=== PATIENT | female | born 1965 | race Caucasian/White ===

== ENCOUNTER 2022-12-13 10:34 | Emergency (ER) | payer OTHER, MEDICAID ==
[~2022-12-13] VITALS: Ht 160 cm; Wt 61.2 kg
[2022-12-13 10:38] VITALS: BP_SYST 135
--- NOTE | 2022-12-13 10:44 | NUR ---
NOTICED BLOOD IN URINE PAST SAT
--- NOTE | 2022-12-13 10:57 | NUR ---
Patient to ER bed 4 to gown for evaluation. Side rails up.
[2022-12-13 11:04] LABS: BILIRUBIN,URINE NEGATIVE (NEGATIVE); BLOOD, URINE 3+ (NEGATIVE); CLARITY/URINE SL CLOUDY (CLEAR); COLOR,URINE YELLOW (YELLOW); GLUCOSE,URINE NEGATIVE (NEGATIVE); KETONES,URINE NEGATIVE (NEGATIVE); LEUKOCYTE ESTERASE ,URINE 3+ (NEGATIVE); NITRITE, URINE NEGATIVE (NEGATIVE); PROTEIN URINE TRACE (NEGATIVE); UROBILINOGEN,URINE 0.2 (0.2-1.0)
[2022-12-13 11:21] LABS: BACTERIA,URINE FEW /HPF (None Seen); WBC,URINE 50-80 /HPF (0-3)
[2022-12-13] MEDS ORDERED: cefTRIAXone 1 GM VIAL IM ONE (11:30)
--- NOTE | 2022-12-13 11:32 | NUR ---
Found pt laying in bed without distress. Pt sts that she has had bladder discomfort for 3 days. Pt sts she has a slight burning sensation when urinating but is able to empty her bladder. Pt has no other complaints and shows no signs or symptoms of any complications. awaiting lab results
[2022-12-13] MEDS ORDERED: PHEN-726 PO (11:33)
[2022-12-13] MEDS ORDERED: NITR-85 PO (11:33)
[2022-12-13 12:14] VITALS: BP_SYST 137
--- NOTE | 2022-12-13 12:16 | NUR ---
Patient given written and verbal discharge instructions and verbalizes understanding. ER MD discussed with patient the results and treatment provided. Patient in stable condition. ID arm band removed. IV catheter removed intact and dressing applied, no active bleeding. Patient educated on pain management and to follow up with PMD. Pain Scale . Opportunity for questions provided and answered. Medication side effect fact sheet provided.
== END 2022-12-13 12:14 | disposition home or self-care (01) ==
LOC: SED 10:34
DX: N39.0 Urinary tract infection, site not specified (principal); R30.0 Dysuria; R31.9 Hematuria, unspecified; Z88.0 Allergy status to penicillin; Z88.6 Allergy status to analgesic agent; Z79.899 Other long term (current) drug therapy
CPT/HCPCS: 99283; 81000; 87086; 96372; J0696

== ENCOUNTER 2023-02-09 11:50 | Emergency (ER) | payer OTHER, MEDICAID ==
[~2023-02-09] VITALS: Ht 160 cm; Wt 62.6 kg
[~2023-02-09 11:50] MED LIST: NITR-85 PO; PHEN-726 PO
[2023-02-09 11:56] VITALS: BP_SYST 123
--- NOTE | 2023-02-09 12:10 | NUR ---
ER in Triage examining patient.
[2023-02-09] MEDS ORDERED: NITR-85 PO (12:13)
[2023-02-09] MEDS ORDERED: PHEN-726 PO (12:13)
--- NOTE | 2023-02-09 12:15 | NUR ---
Patient given written and verbal discharge instructions and verbalizes understanding. ER MD discussed with patient the results and treatment provided. Patient in stable condition. ID arm band removed. Rx of given. Patient educated on pain management and to follow up with PMD. Pain Scale 5/10. Opportunity for questions provided and answered. Medication side effect fact sheet provided.
== END 2023-02-09 12:15 | disposition home or self-care (01) ==
LOC: SED 11:50
DX: N39.0 Urinary tract infection, site not specified (principal); R30.0 Dysuria; R35.0 Frequency of micturition; R31.9 Hematuria, unspecified; Z88.0 Allergy status to penicillin; Z88.6 Allergy status to analgesic agent; Z79.899 Other long term (current) drug therapy
CPT/HCPCS: 99283

== ENCOUNTER 2023-03-03 08:36 | Emergency (ER) | payer OTHER, MEDICAID ==
[~2023-03-03] VITALS: Ht 160 cm; Wt 63.5 kg
--- NOTE | 2023-03-03 08:40 | NUR ---
Placed in room 04 . Placed on quality assurance monitor body, blood pressure machine and pulse oximeter. To gown for exam. Side rails up. Report given to FRIDA ROJAS.
[2023-03-03 08:47] VITALS: BP_SYST 148
--- NOTE | 2023-03-03 08:55 | NUR ---
ANUP Duval at bedside examining patient.
--- NOTE | 2023-03-03 09:00 | NUR ---
PT CAME IN FROM HOME C/O BURNING WITH URINATION X 4 DAYS, WAS UNABLE TO MAKE AN APPT WITH PCP IN A TIMELY MATTER. PT IS AMBULATORY, AAOX4, VSS
[2023-03-03] MEDS ORDERED: ONDANSETRON 4 MG ODT TAB PO ONE (09:15)
[2023-03-03] MEDS ORDERED: NITROFURANTOIN MONOHYD/M-CRYST 100 MG CAPSULE (MacroBID) PO ONE (09:15)
--- NOTE | 2023-03-03 09:15 | NUR ---
Urine specimen collected and delivered to lab.
[2023-03-03] MEDS ORDERED: ONDA-8 TL (09:30)
[2023-03-03] MEDS ORDERED: PHEN-890 PO (09:30)
[2023-03-03] MEDS ORDERED: NITR-85 PO (09:30)
[2023-03-03 09:36] LABS: BILIRUBIN,URINE NEGATIVE (NEGATIVE); BLOOD, URINE 2+ (NEGATIVE); COLOR,URINE YELLOW (YELLOW); GLUCOSE,URINE NEGATIVE (NEGATIVE); KETONES,URINE NEGATIVE (NEGATIVE); LEUKOCYTE ESTERASE ,URINE 3+ (NEGATIVE); NITRITE, URINE NEGATIVE (NEGATIVE); PH,URINE 7.5 (5.0-8.0); PROTEIN URINE NEGATIVE (NEGATIVE); UROBILINOGEN,URINE 0.2 (0.2-1.0)
[2023-03-03 09:41] LABS: CLARITY/URINE HAZY (CLEAR)
[2023-03-03 09:45] VITALS: BP_SYST 148
[2023-03-03 09:45] LABS: BACTERIA,URINE MODERATE /HPF (None Seen)
--- NOTE | 2023-03-03 09:45 | NUR ---
Patient given written and verbal discharge instructions and verbalizes understanding. ER MD discussed with patient the results and treatment provided. Patient in stable condition. ID arm band removed. Rx of PYRIDIUM, ZOFRAN AND MACROBID given. Patient educated on pain management and to follow up with PMD. Opportunity for questions provided and answered. Medication side effect fact sheet provided.
--- NOTE | 2023-03-05 10:53 | NUR ---
Blood culture received indicating Escherichia Coli, results given to Dr Gonsalves, per Dr Gonsalves pt was treated with Macrobid during ER visit, pt susceptible to medication.
== END 2023-03-03 09:45 | disposition home or self-care (01) ==
LOC: SED 08:36
DX: N39.0 Urinary tract infection, site not specified (principal); R39.15 Urgency of urination; I10 Essential (primary) hypertension; Z88.0 Allergy status to penicillin; Z88.6 Allergy status to analgesic agent; Z79.899 Other long term (current) drug therapy
CPT/HCPCS: 99283; 81000; 87086; Q0162